=== PATIENT | male | born 1985 | race Asian ===

== ENCOUNTER 2017-03-16 22:34 | Emergency (ER) | payer OTHER ==
[~2017-03-16] VITALS: Ht 165.1 cm; Wt 88.6 kg
[2017-03-16 22:38] VITALS: Ht 165.1 cm; Wt 88.6 kg
[2017-03-16] MEDS ORDERED: KETOROLAC 30 MG INJ IM STA (23:00)
[2017-03-16] MEDS ORDERED: SOD CHLORIDE 0.9% 1,000 ML IV ONE (23:00)
[2017-03-16] MEDS ORDERED: ONDANSETRON (ODT) 4 MG TAB ODT STA (23:00)
--- NOTE | 2017-03-16 23:50 | RADRPT ---
PROCEDURE: CHEST - 1 VIEW CLINICAL INDICATION: 31 year-old male with cough. TECHNIQUE: AP erect view of the chest was performed on a single radiograph. The images were revi ewed on a PACS workstation. COMPARISON: None. FINDINGS: There is a shallow inspiration accentuating the heart size. Accounting for this the cardiomediastina l silhouette is within normal limits. There is mild bibasilar subsegmental atelectasis. There are m ild increased central interstitial lung markings. There is no evidence for a focal infiltrate. Ther e is no evidence for a pneumothorax or pneumomediastinum. The osseous structures are intact. IMPRESSION: 1. Mild increased central interstitial lung markings without focal infiltrate. 2. Shallow inspiration with mild bibasilar subsegmental atelectasis. .Conrad Jansen MD, MD Date Time Electronically viewed and signed by .Conrad Jansen MD, on 03/16/2017 23:49 .M/
--- NOTE | 2017-03-16 23:51 | ERD ---
ER Documentation Chief Complaint Chief Complaint flu like symptoms x 2 months, on oral antibiotic x 2 days HPI Patient is a 31-year-old male who presents to the ED for concerns of a cough 2 months. Patient reports seeing his primary care physician 2 days ago and being started on a Z-Wale and promethazine cough syrup. Patient states his cough is productive with clear production. Patient does report occasional specks of blood. Patient denies any sore throat or rhinorrhea. Patient does admit to generalized body aches. Patient reports intermittent fevers however did not check temperature at home. Patient denies any nausea, vomiting or diarrhea. Patient denies any abdominal pain. Patient denies any black stools or rectal bleeding. Patient denies any recent travel. No sick contacts. ROS All systems reviewed and are negative except as per history of present illness. Medications Home Meds Active Scripts Acetaminophen* (Tylophen*) 500 Mg Capsule, 1 CAP PO Q6H Y for PAIN AND OR ELEVATED TEMP, #20 CAP Prov:JEREMIAH CHACON PA-C 03/17/17 Ferrous Sulfate* (Ferrous Sulfate*) 325 Mg Tabec, 325 MG PO BID, #60 TAB Prov:JEREMIAH CHACON PA-C 03/17/17 Allergies Allergies: Coded Allergies: No Known Allergy (Unverified , 03/16/17) PMhx/Soc Medical and Surgical Hx: pt denies Surgical Hx Hx Cardiac Disorders: Yes (HTN) Hx Alcohol Use: No Hx Substance Use: No Hx Tobacco Use: No Smoking Status: Never smoker Physical Exam Vitals Vital Signs Date Time Temp Pulse Resp B/P Pulse Ox O2 Delivery O2 Flow Rate FiO2 03/17/17 01:28 99.5 106 03/16/17 22:38 102.4 128 22 133/61 97 Physical Exam GENERAL: Well-developed, well-nourished male. HEAD: Normocephalic, atraumatic. No deformities or ecchymosis. EYE: Pupils equal, round, and reactive to light. EOMs intact. No conjunctival erythema. No eye discharge. ENT: External ear without any masses or tenderness. TM visualized bilaterally, non-erythematous, non-bulging. Nasal mucosa pink with no discharge. Oropharynx is pink without any tonsillar erythema or exudates. No uvula deviation. No kissing tonsils. Mucous membranes dry. NECK: Supple. No meningismus. Normal ROM of the neck. LUNGS: Clear to auscultation bilaterally. No rhonchi, wheezing, rales or coarse breath sounds. HEART: Regular rate and rhythm. No murmurs, rubs or gallops. EXTREMITIES: Equal pulses bilaterally. No peripheral clubbing, cyanosis or edema. No unilateral leg swelling. NEUROLOGIC: Alert and oriented to person, place and time. Moving all four extremities. 5/5 strength in all extremities. Normal speech. Steady gait. SKIN: Slightly pale in appearance. Warm and dry. No rashes or lesions. Result Diagram: 03/16/17 2344 03/16/17 2344 Results 24 hrs Laboratory Tests Test 03/16/17 23:44 White Blood Count 16.010^3/ul Red Blood Count 4.3610^6/ul Hemoglobin 9.3g/dl Hematocrit 29.9% Mean Corpuscular Volume 68.6fl Mean Corpuscular Hemoglobin 21.3pg Mean Corpuscular Hemoglobin Concent 31.1g/dl Red Cell Distribution Width 18.0% Platelet Count 23356^3/UL Mean Platelet Volume 9.7fl Neutrophils % 80.5% Lymphocytes % 14.2% Monocytes % 3.9% Eosinophils % 0.4% Basophils % 0.4% Nucleated Red Blood Cells % 0.0/100WBC Neutrophils # 12.910^3/ul Lymphocytes # 2.310^3/ul Monocytes # 0.610^3/ul Eosinophils # 0.110^3/ul Basophils # 0.110^3/ul Nucleated Red Blood Cells # 0.010^3/ul Sodium Level 132mmol/L Potassium Level 3.7mmol/L Chloride Level 101mmol/L Carbon Dioxide Level 21mmol/L Anion Gap 14 Blood Urea Nitrogen 14mg/dl Creatinine 0.80mg/dl Glucose Level 117mg/dl Calcium Level 8.2mg/dl Total Bilirubin 1.3mg/dl Direct Bilirubin 0.00mg/dl Indirect Bilirubin 1.3mg/dl Aspartate Amino Transf (AST/SGOT) 51IU/L Alanine Aminotransferase (ALT/SGPT) 55IU/L Alkaline Phosphatase 89IU/L Total Protein 7.4g/dl Albumin 3.1g/dl Globulin 4.30g/dl Albumin/Globulin Ratio 0.72 Current Medications Medications (Trade) Dose Ordered Sig/Rubén Route PRN Reason Start Time Stop Time Status Last Admin Dose Admin Ondansetron HCl 4 mg 4 mg ONCE STAT ODT 03/16/17 23:00 03/16/17 23:03 DC 03/16/17 23:25 Sodium Chloride (NS) 1,000 ml @ 1,000 mls/hr Q1H ONCE IV 03/16/17 23:00 03/16/17 23:59 DC 03/16/17 23:25 Ketorolac Tromethamine (Toradol) 30 mg ONCE STAT IM 03/16/17 23:00 03/16/17 23:03 DC 03/16/17 23:24 Procedures/MDM ED COURSE: The patient was stable throughout ED course. I kept the patient and/or family informed of laboratory and diagnostic imaging results throughout the ED course. DIAGNOSTIC IMAGING: Read by radiologist. Patient: TANA KHOURY : 1985 Age: 31 Sex: M MR #: [id number] DOS: 03/16/17 2300 Ordering MD: JEREMIAH CHACON PA-C Location: [facility] Room/Bed: PROCEDURE: CHEST - 1 VIEW CLINICAL INDICATION: 31 year-old male with cough. TECHNIQUE: AP erect view of the chest was performed on a single radiograph. The images were reviewed on a PACS workstation. COMPARISON: None. FINDINGS: There is a shallow inspiration accentuating the heart size. Accounting for this the cardiomediastinal silhouette is within normal limits. There is mild bibasilar subsegmental atelectasis. There are mild increased central interstitial lung markings. There is no evidence for a focal infiltrate. There is no evidence for a pneumothorax or pneumomediastinum. The osseous structures are intact. IMPRESSION: 1. Mild increased central interstitial lung markings without focal infiltrate. 2. Shallow inspiration with mild bibasilar subsegmental atelectasis. .Conrad Jansen MD, Date Time Electronically viewed and signed by .Conrad Jansen MD, on 03/16/2017 23:49 PROCEDURES: None. MEDICATIONS GIVEN: Toradol, IV fluids Patient tolerated medication well with no adverse reactions. MEDICAL DECISION MAKING: This is a 31-year-old male who presents to the ED for concerns cough 2 months, worse over the last 2 days. Patient was started on a Z-Wale and promethazine cough syrup 2 days ago after seeing his primary care physician. Vital signs were reviewed. He was febrile initial presentation with a temperature of 102.4 Fahrenheit. He was given Toradol which did down trend his temperature.. Patient was not hypoxic. ENT exam was normal. TMs normal. Chest x-ray was obtained and showed mild increased central interstitial lung markings without focal infiltrate. Shallow inspiration with mild bibasilar subsegmental atelectasis noted. CBC showed patient had a white count of 16 and a hemoglobin of 9.3, hematocrit of 29.9. Patient MCV was noted to be 68, suggestive of a microcytic anemia. Patient denied any hematochezia, melena or tarry dark stools. Patient does not require emergent blood transfusion at this time. It was advised that he should follow-up with his primary care physician for his low hemoglobin level and discuss obtaining a possible endoscopy versus colonoscopy. Patient's CMP showed a sodium of 132, calcium of 8.2, indirect bilirubin of 1.3 and AST of 57. Flu swab was negative. Given these findings, the patient's presentation is most consistent with viral URI anemia.. Low suspicion for pneumonia, meningitis, sinusitis, otitis externa, acute otitis media, strep pharyngitis, epiglottitis or peritonsillar abscess. Low suspicion for sepsis at this time. Patient's pulse and temperature were noted to downtrending prior to discharge. Patient was given IV fluids and Toradol which should improve his overall symptoms. Patient stated that he had a follow-up appointment tomorrow morning with his primary care physician. Patient was given a copy of all blood work and imaging studies obtained today. Patient was advised to discuss all blood work and imaging studies with his primary care physician. PRESCRIPTIONS: Tylenol, iron sulfate supplements Patient advised to continue Z-Wale and promethazine cough syrup. DISCHARGE: At this time, patient is stable for discharge and outpatient management. Discussed patient's blood work and imaging study with my supervising physician Dr. Garcia who agrees with plan. Supportive therapies such as OTC throat lozenges, salt water gurgles, popsicles and jello discussed. I have instructed the patient to follow-up with his/her primary care physician in 1-2 days. I have instructed the patient to promptly return to the ER for any new or worsening symptoms including increased pain, swelling, fever, nausea, vomiting, weakness or difficulty breathing. The patient and/or family expressed understanding of and agreement with this plan. All questions were answered. Home care instructions were provided. Disclaimer: Inadvertent spelling and grammatical errors are likely due to EHR/ dictation software use and do not reflect on the overall quality of patient care. Also, please note that the electronic time recorded on this note does not necessarily reflect the actual time of the patient encounter. Departure Diagnosis: Primary Impression: Upper respiratory infection URI type: unspecified URI Qualified Code: J06.9 - Upper respiratory tract infection, unspecified type Additional Impression: Anemia Anemia type: unspecified type Qualified Code: D64.9 - Anemia, unspecified type Condition: Stable Patient Instructions: Anemia, Iron Deficiency (Adult), Preventing Common Respiratory Infections Referrals: [facility] Additional Instructions: Continue Z wale. Follow-up with her doctor as scheduled tomorrow morning. Discuss your anemia with your doctor tomorrow. You may need a endoscopy versus colonoscopy to rule out any GI bleeding. Call your primary care doctor TOMORROW for an appointment during the next 1-2 days.See the doctor sooner or return here if your condition worsens before your appointment time. JEREMIAH CHACON PA-C Mar 16, 2017 23:51
[2017-03-17 00:22] LABS: BASOPHIL # 0.1 10^3/ul (0.0-0.1); BASOPHILS % 0.4 % (0.0-2.0); EOSINOPHILS # 0.1 10^3/ul (0.0-0.5); EOSINOPHILS % 0.4 % (0.0-7.0); HEMATOCRIT 29.9 % (42.0-52.0); HEMOGLOBIN 9.3 g/dl (14.0-18.0); LYMPHOCYTES # 2.3 10^3/ul (0.8-2.9); LYMPHOCYTES % 14.2 % (15.0-51.0); MEAN CORPUSCULAR HEMOGLOBIN 21.3 pg (29.0-33.0); MEAN CORPUSCULAR HGB CONC 31.1 g/dl (32.0-37.0); MEAN CORPUSCULAR VOLUME 68.6 fl (82.0-101.0); MEAN PLATELET VOLUME 9.7 fl (7.4-10.4); MONOCYTE # 0.6 10^3/ul (0.3-0.9); MONOCYTES % 3.9 % (0.0-11.0); NEUTROPHIL # 12.9 10^3/ul (1.6-7.5); NEUTROPHILS % 80.5 % (39.0-77.0); PLATELET COUNT 290 10^3/UL (140-415); RED BLOOD COUNT 4.36 10^6/ul (4.70-6.10)
[2017-03-17 00:42] LABS: ALBUMIN 3.1 g/dl (3.3-4.9); ALBUMIN/GLOBULIN RATIO 0.72; BILIRUBIN,INDIRECT 1.3 mg/dl (0-1.1); BILIRUBIN,TOTAL 1.3 mg/dl (0.2-1.3); CALCIUM 8.2 mg/dl (8.4-10.2); CREATININE 0.8 mg/dl (0.61-1.24); POTASSIUM 3.7 mmol/L (3.5-5.1); TOTAL PROTEIN 7.4 g/dl (6.1-8.1)
[2017-03-17] MEDS ORDERED: FER325 PO (01:26)
[2017-03-17 01:28] VITALS: PULSE 106; TEMP 99.5
[2017-03-17] MEDS ORDERED: ACET500C5 PO (01:32)
== END 2017-03-17 01:55 | disposition home or self-care (01) ==
LOC: FTE 22:34
DX: J06.9 Acute upper respiratory infection, unspecified (principal); D64.9 Anemia, unspecified; I10 Essential (primary) hypertension
CPT/HCPCS: 36415; 71010; 80053; 85025; 87400; 96372; J1885; J7030; Z7502; Z7610

== ENCOUNTER 2017-03-18 04:29 | Day surgery (SDC) | payer OTHER ==
[~2017-03-18] VITALS: Ht 165.1 cm; Wt 92.8 kg
[~2017-03-18 04:29] MED LIST: ACET500C5 PO; FER325 PO
[2017-03-18 04:33] VITALS: Ht 165.1 cm; Wt 92.8 kg
[2017-03-18] MEDS ORDERED: SODIUM CHLORIDE 0.9% 1L BAG IV* STA (04:45)
[2017-03-18] MEDS ORDERED: CEFEPIME 2GM/50 ML (PMX) 50 ML IVPB STA (04:45)
[2017-03-18] MEDS ORDERED: ONDANSETRON 4 MG INJ IV STA (05:08)
[2017-03-18] MEDS ORDERED: IOHEXOL 100 ML ONE (05:36)
[2017-03-18] MEDS ORDERED: SOD CHLORIDE 0.9% 100 ML ONE (05:36)
[2017-03-18 05:42] LABS: ABNORMAL IP MESSAGE 1; HEMATOCRIT 32.2 % (42.0-52.0); HEMOGLOBIN 9.9 g/dl (14.0-18.0); MEAN CORPUSCULAR HEMOGLOBIN 22.4 pg (29.0-33.0); MEAN CORPUSCULAR HGB CONC 30.7 g/dl (32.0-37.0); MEAN PLATELET VOLUME 10.6 fl (7.4-10.4); NUCLEATED RED BLOOD CELLS% 1.1 /100WBC (0.0-0.0); PLATELET COUNT 162 10^3/UL (140-415); POSITIVE DIFF @See below; RED BLOOD COUNT 4.41 10^6/ul (4.70-6.10); RED CELL DISTRIBUTION WIDTH 18.1 % (11.5-14.5); WHITE BLOOD COUNT 33.2 10^3/ul (4.8-10.8)
[2017-03-18] MEDS ORDERED: NORepinephrine 8MG/250 ML (PMX 250 ML ONE ×2 (05:53→12:38)
[2017-03-18 05:58] LABS: INR 3.21; PROTIME 33.3 Sec (12.2-14.2); PT RATIO 2.6
[2017-03-18 05:59] LABS: PARTIAL THROMBOPLASTIN TIME 33.3 Sec (25.0-35.0)
[2017-03-18 06:08] LABS: ALBUMIN 2.9 g/dl (3.3-4.9); ALBUMIN/GLOBULIN RATIO 0.74; BILIRUBIN,DIRECT 0.4 mg/dl (0.00-0.20); BILIRUBIN,INDIRECT 2.7 mg/dl (0-1.1); BILIRUBIN,TOTAL 3.1 mg/dl (0.2-1.3); CALCIUM 8.2 mg/dl (8.4-10.2); CREATININE 1.68 mg/dl (0.61-1.24); POTASSIUM 5.4 mmol/L (3.5-5.1); TOTAL PROTEIN 6.8 g/dl (6.1-8.1)
[2017-03-18] MEDS ORDERED: SOD CHLORIDE 0.9% 1,000 ML IV ONE (06:30)
[2017-03-18] MEDS ORDERED: DEXTROSE 50% 50 ML SYRINGE IV ONE (06:30)
[2017-03-18] MEDS ORDERED: DEXTROSE 10% 1,000 ML IV STA (06:31)
--- NOTE | 2017-03-18 06:47 | RADRPT ---
PROCEDURE: CTA Chest, abdomen, and pelvis with contrast. CLINICAL INDICATION: Severe shortness of breath and tachycardia TECHNIQUE: Thin section spiral CT images were obtained through the vasculature of the chest, abdom en, and pelvis during administration of 100 ccs of Omnipaque 350 contrast material. Coronal and sag ittal reformatted images were obtained from the axial source images. 3D maximum intensity reconstruc yumiko were performed. Images were reviewed on a high-resolution PACS workstation. The total exam CTDI was 19.34 mGy and the total exam DLP was 1512.09 mGy-cm. One or more of the following dose reductio n techniques were used: automated exposure control, adjustment of the mA and/or kV according to tequila ent size, or use of iterative reconstruction technique. DICOM images are available. COMPARISON: Chest x-ray from the same day FINDINGS: Chest: Significant volume loss of the lungs is seen with compressive atelectasis. Dependent infectio us infiltrates cannot be excluded.. Endotracheal tube appears in good position.. There are large bi lateral pleural effusions, right greater than left.. Cardiomegaly is seen. Right heart enlargement i s seen suggesting fluid overload or decreased right heart function. There is no evidence for pulmona ry embolus or aortic dissection. No aortic aneurysm is seen. No bony abnormality is seen. Abdomen and pelvis: . The study was obtained in the arterial phase of enhancement which limits evalu ation of the solid organs. The liver appears slightly low in attenuation which may be due to hepatic steatosis. There is fat stranding in the region of the gee hepatis and adjacent to the gallbladde r with stranding and fluid adjacent to the inferior aspect of the liver and extending along the righ t paracolic gutter into the pelvis. Moderate pelvic free fluid is seen. Fat stranding extends along the distal stomach and duodenum with fat stranding also seen at the adjacent to the head, neck, and body of the pancreas. Acute pancreatitis is possible. No gross abnormality of the spleen, adrenals, or kidneys. There may be mild gallbladder wall thickening. Right femoral line is in place. The bladd er and prostate are unremarkable in appearance. The right upper quadrant inflammatory process is adj acent to the hepatic flexure but this does not appear to be the epicenter of the inflammatory process. Probable normal appendix. No evidence for small bowel obstruction, free air, or focal absce ss. No adenopathy is seen. There is mild degenerative change of the spine. IMPRESSION: No definite evidence for pulmonary embolus. Cardiomegaly and bilateral pleural effusions with compre ssive atelectasis of the lungs versus infectious infiltrates. Right heart enlargement suggests fluid overload or possibly a degree of heart failure. Inflammatory process of the right upper quadrant with inflammatory change about the gallbladder, moreno creas, distal stomach and duodenum, and gee hepatis. This could all be due to pancreatitis and / o r cholecystitis. No definite free air, bowel obstruction, or abscess. Moderate free fluid in the rig ht upper quadrant and extending in the pelvis. Probable hepatic steatosis. RPTAT: [facility] Physician Shannon Date Time Electronically viewed and signed by Lashonda Mitchell Physician on 03/18/2017 06:46 LE/
[2017-03-18 06:48] LABS: ANISOCYTOSIS 1+ (0-0); ERYTHROBLAST% (NRBC) (M) 3 % (0-0); GIANT THROMBO% (M) 3 % (0-0); MICROCYTOSIS 1+ (0-0); MONOCYTES % (M) 4 % (0-11); PLATELET ESTIMATE NORMAL
--- NOTE | 2017-03-18 06:48 | RADRPT ---
PROCEDURE: CHEST - 1 VIEW CLINICAL INDICATION: 31-year-old male with shortness of breath and sepsis. TECHNIQUE: AP semi-erect portable view of the chest was performed on a single radiograph. The im ages were reviewed on a PACS workstation. COMPARISON: None. FINDINGS: The cardiomediastinal silhouette is enlarged. There are mild pulmonary vascular congestion. There is no evidence for a focal infiltrate. There is no evidence for a pneumothorax or pneumomediastinum. The osseous structures are intact. IMPRESSION: 1. Cardiomegaly. 2. Mild pulmonary vascular congestion/volume overload. .Conrad Jansen MD, MD Date Time Electronically viewed and signed by .Conrad Jansen MD, MD on 03/18/2017 06:48 .M/
[2017-03-18] MEDS ORDERED: ROCURONIUM 50 MG INJ ONE (07:00)
[2017-03-18] MEDS ORDERED: EPINEPHrine 0.1 MG/ML SYG ONE ×2 (07:00→12:32)
[2017-03-18] MEDS ORDERED: DEXTROSE 50% 50 ML SYRINGE ONE (07:00)
[2017-03-18] MEDS ORDERED: ATROPINE 1 MG/10 ML SYRINGE ONE (07:00)
[2017-03-18] MEDS ORDERED: NA BICARBONATE 8.4% 50 ML SYG ONE ×2 (07:00→11:50)
[2017-03-18] MEDS ORDERED: ETOMIDATE 20 MG INJ ONE (07:00)
[2017-03-18 07:12] LABS: ADD UMIC YES; UR AMORPHOUS CRYSTAL FEW /HPF (NONE SEEN); UR ASCORBIC ACID 40 mg/dL (NEGATIVE); UR BACTERIA FEW /HPF (NONE SEEN); UR BILIRUBIN (Dip) NEGATIVE (NEGATIVE); UR BLOOD (Dip) 2+ mg/dL (NEGATIVE); UR CLARITY CLOUDY (CLEAR); UR COLOR AMBER (YELLOW); UR GLUCOSE (Dip) NEGATIVE (NEGATIVE); UR KETONES (Dip) TRACE mg/dL (NEGATIVE); UR LEUKOCYTE ESTERASE (Dip) NEGATIVE Leu/ul (NEGATIVE); UR MUCUS FEW /HPF (NONE SEEN); UR NITRITE (Dip) NEGATIVE (NEGATIVE); UR RBC 8 /HPF (0-5); UR SPECIFIC GRAVITY (Dip) 1.019 (1.003-1.030); UR TOTAL PROTEIN (Dip) 2+ mg/dl (NEGATIVE); UR UROBILINOGEN (Dip) 2+ mg/dL (NEGATIVE)
[2017-03-18 07:20] LABS: AADO2 Arterial 219.4 mmHg (7.0-24.0); Arterial Base Excess -22.9 mmol/L (-3.0-3); Arterial COHb 0.3 % (0.0-3.0); Arterial Fraction of Oxyhgb 98.6 % (93.0-99.0); Arterial HCO3 5.8 mmol/L (22.0-26.0); Arterial MetHb 0.4 % (0.0-1.5); Arterial Total Hemglobin 10.6 g/dl (12.0-18.0); MODE MASK - BIPAP
[2017-03-18 07:23] LABS: AADO2 Arterial 573.7 mmHg (7.0-24.0); Arterial Base Excess -24.7 mmol/L (-3.0-3); Arterial COHb 0.3 % (0.0-3.0); Arterial Fraction of Oxyhgb 91.7 % (93.0-99.0); Arterial HCO3 6.4 mmol/L (22.0-26.0); Arterial MetHb 0.6 % (0.0-1.5); Arterial Total Hemglobin 8.6 g/dl (12.0-18.0); Blood Gas Mean Airway Pressure 12; MODE VENT - AC
--- NOTE | 2017-03-18 07:24 | ERD ---
ER Documentation Chief Complaint Chief Complaint PT IN C/O DIZZINESS, SOB, WITH RAPID BREATHING. SKIN PALE (ERIN GRIER DO) HPI This 31-year-old male brought in by parents for feeling extremely lightheaded and shortness of breath today. He states that for the last few weeks he has had a slight cough and has not been feeling as well. He came in yesterday for those symptoms and had a fever at the time of the fever was relieved in the emergency room the patient was feeling much better when he left. Today he quickly got much worse and started to say that he could not breathe. Patient denies chest pain. Said he had chills denies fevers. Denies nausea or vomiting. I was both involved in the care of this patient yesterday and reviewed his EMR. Discussed the case with the PA and had a low hemoglobin. He was feeling much better in the emergency room vital signs had stabilized and he felt comfortable going home. No infectious source was found at that time. He is to have acutely decompensated from yesterday. (ERIN GRIER DO) ROS All systems reviewed and are negative except as per history of present illness. (ERIN GRIER DO) Medications Home Meds Active Scripts Acetaminophen* (Tylophen*) 500 Mg Capsule, 1 CAP PO Q6H Y for PAIN AND OR ELEVATED TEMP, #20 CAP Prov:JEREMIAH CHACON PA-C 03/17/17 Ferrous Sulfate* (Ferrous Sulfate*) 325 Mg Tabec, 325 MG PO BID, #60 TAB Prov:JEREMIAH CHACON PA-C 03/17/17 Allergies Allergies: Coded Allergies: No Known Allergy (Unverified , 03/16/17) PMhx/Soc Medical and Surgical Hx: pt denies Surgical Hx History of Surgery: No Anesthesia Reaction: No Hx Neurological Disorder: No Hx Respiratory Disorders: No Hx Cardiac Disorders: Yes (HTN) Hx Psychiatric Problems: No Hx Miscellaneous Medical Probl: No Hx Alcohol Use: No Hx Substance Use: No Hx Tobacco Use: No Smoking Status: Never smoker (ERIN GRIER DO) Physical Exam Vitals Vital Signs Date Time Temp Pulse Resp B/P Pulse Ox O2 Delivery O2 Flow Rate FiO2 03/18/17 12:00 98.3 139 20 145/73 93 Mechanical Ventilator 10.0 03/18/17 11:00 98.3 59 20 146/96 100 Mechanical Ventilator 10.0 03/18/17 10:35 98.3 123 20 141/55 100 Mechanical Ventilator 10.0 03/18/17 10:25 98.3 139 20 151/71 100 Mechanical Ventilator 10.0 03/18/17 10:20 98.3 76 20 149/78 100 Mechanical Ventilator 10.0 03/18/17 10:15 98.0 27 20 93/28 100 Mechanical Ventilator 10.0 03/18/17 10:00 98.0 100 20 83/29 100 Mechanical Ventilator 10.0 03/18/17 09:30 98.0 99 20 99/44 98 Mechanical Ventilator 10.0 03/18/17 08:29 98.3 100 20 108/41 100 Mechanical Ventilator 10.0 03/18/17 07:30 98.0 103 20 108/38 100 Mechanical Ventilator 10.0 03/18/17 07:00 98 40 100 100 03/18/17 07:00 97.7 103 20 97/25 100 Mechanical Ventilator 10.0 03/18/17 06:30 97.7 97 20 85/46 78 Mechanical Ventilator 10.0 03/18/17 06:00 130 40 94 100 03/18/17 05:39 101.0 03/18/17 05:20 97.9 114 56 151/59 100 BIPAP 03/18/17 04:45 113 100 90 03/18/17 04:33 99.5 113 22 156/67 99 (RAFI WEINER DO) Physical Exam Const: [] Severe distress, tachypneic. Head: Atraumatic Eyes: Normal Conjunctiva, EOMI, PERRLA ENT: Normal External Ears, Nose and Mouth. Neck: Full range of motion..~ No meningismus. Resp: Clear to auscultation bilaterally, tachypnea with abdominal accessory muscle use. Cardio: Regular tachycardia no murmurs Abd: Soft, non tender, non distended. Normal bowel sounds Skin: No petechiae or rashes Ext: No cyanosis, or edema Neur: Awake and alert and oriented 3, no focal deficits (ERIN GRIER DO) Result Diagram: 03/18/17 0500 03/18/17 0500 Results 24 hrs Laboratory Tests Test 03/18/17 05:00 03/18/17 05:28 03/18/17 06:25 03/18/17 06:33 White Blood Count 33.210^3/ul Red Blood Count 4.4110^6/ul Hemoglobin 9.9g/dl Hematocrit 32.2% Mean Corpuscular Volume 73.0fl Mean Corpuscular Hemoglobin 22.4pg Mean Corpuscular Hemoglobin Concent 30.7g/dl Red Cell Distribution Width 18.1% Platelet Count 35424^3/UL Mean Platelet Volume 10.6fl Neutrophils % % Segmented Neutrophils % (Manual) 67% Band Neutrophils % (Manual) 12% Lymphocytes % % Lymphocytes % (Manual) 17% Monocytes % % Monocytes % (Manual) 4% Eosinophils % % Basophils % % Nucleated Red Blood Cells % 3% Neutrophils # 10^3/ul Neutrophils # (Manual) 23.510^3/ul Band Neutrophils # 3.910^3/ul Absolute Lymphocytes (Manual) 5.610^3/ul Lymphocytes # 10^3/ul Monocytes # 10^3/ul Absolute Monocytes (Manual) 1.310^3/ul Eosinophils # 10^3/ul Basophils # 10^3/ul Nucleated Red Blood Cells # 10^3/ul Platelet Estimate NORMAL Giant Platelets 3% Platelet Morphology Comment @See below Anisocytosis 1+ Microcytosis 1+ Prothrombin Time 33.3Sec Prothrombin Time Ratio 2.6 INR International Normalized Ratio 3.21 Activated Partial Thromboplast Time 33.3Sec Sodium Level 127mmol/L Potassium Level 5.4mmol/L Chloride Level 94mmol/L Carbon Dioxide Level 9mmol/L Anion Gap 29 Blood Urea Nitrogen 23mg/dl Creatinine 1.68mg/dl Glucose Level 44mg/dl Lactic Acid Level 16.5mmol/L Calcium Level 8.2mg/dl Total Bilirubin 3.1mg/dl Direct Bilirubin 0.40mg/dl Indirect Bilirubin 2.7mg/dl Aspartate Amino Transf (AST/SGOT) 5968IU/L Alanine Aminotransferase (ALT/SGPT) 3847IU/L Alkaline Phosphatase 173IU/L Troponin I 0.122ng/ml Total Protein 6.8g/dl Albumin 2.9g/dl Globulin 3.90g/dl Albumin/Globulin Ratio 0.74 Lipase 311U/L Thyroid Stimulating Hormone (TSH) 1.690MIU/L Blood Gas Specimen Source Blood arterial Blood arterial Arterial Blood Date Drawn 03/18/2017 5:25:34 AM 03/18/2017 6:40:01 AM Arterial Blood pH (Temp corrected) 7.055 6.920 Arterial Blood pCO2 (Temp correct) 21.3mmhg 31.7mmhg Arterial Blood pO2 (Temp corrected) 400.5mmHG 107.6mmHG Arterial Blood HCO3 5.8mmol/L 6.4mmol/L Arterial Blood Base Excess -22.9mmol/L -24.7mmol/L Arterial Blood Oxygen Saturation 99.3mmHG 92.5mmHG Germain Test N/A N/A Arterial Blood Gas Puncture Site Right Brachial Right Brachial Arterial Blood Carboxyhemoglobin 0.3% 0.3% Arterial Blood Methemoglobin 0.4% 0.6% Blood Gas A-a O2 Differential 219.4mmHg 573.7mmHg Oxyhemoglobin Percent 98.6% 91.7% Total Hemoglobin 10.6g/dl 8.6g/dl Blood Gas Temperature 37.0C 37.0C Blood Gas Respiration Rate 24.0 40.0 Blood Gas Actual Respiration Rate 58 40 Blood Gas Modality MASK - BIPAP VENT - AC FiO2 90.0% 100.0% Blood Gas IPAP/EPAP Ratio Blood Gas Critical Value Read Back ERIN SNOWDEN DR, Wilder Blood Gas Notified Whom BL BL Blood Gas Notified Time 03/18/2017 5:35:25 AM 03/18/2017 6:48:53 AM Bedside Glucose 39mg/dL Blood Gas Tidal Volume 400.0mL Blood Gas Mean Airway Pressure 12 Blood Gas Inspiratory Pressure 22.0 Test 03/18/17 06:35 03/18/17 06:40 03/18/17 06:50 03/18/17 07:29 Urine Color CHIKA Urine Clarity CLOUDY Urine pH 5.0 Urine Specific [place] 1.019 Urine Ketones TRACEmg/dL Urine Nitrite NEGATIVEmg/dL Urine Bilirubin NEGATIVEmg/dL Urine Urobilinogen 2+mg/dL Urine Leukocyte Esterase NEGATIVELeu/ul Urine Microscopic RBC 8/HPF Urine Microscopic WBC 6/HPF Urine Amorphous Crystals FEW/HPF Urine Bacteria FEW/HPF Urine Mucus FEW/HPF Urine Hemoglobin 2+mg/dL Urine Glucose NEGATIVEmg/dL Urine Total Protein 2+mg/dl Urine Opiates Screen Negative Urine Barbiturates Negative Urine Amphetamines Screen Negative Urine Benzodiazepines Screen Negative Urine Cocaine Screen Negative Urine Cannabinoids Negative Bedside Glucose 146mg/dL 153mg/dL Lactic Acid Level 16.1mmol/L Test 03/18/17 08:17 03/18/17 08:20 03/18/17 08:27 03/18/17 09:29 Lactic Acid Level 15.6mmol/L Phosphorus Level 9.6mg/dl Free Thyroxine 2.11ng/dl Acetaminophen Level < 10.0ug/ml Hepatitis B Surface Antigen NEGATIVE Hepatitis B Core Total Antibody NEGATIVE Hepatitis C Antibody NEGATIVE HIV (1&2) Antibody NEGATIVE Bedside Glucose 149mg/dL 187mg/dL Test 03/18/17 10:50 03/18/17 12:00 03/18/17 13:26 Lactic Acid Level 16.2mmol/L Salicylates Level < 1.0mg/dl Ethyl Alcohol Level 10.0mg/dl Creatine Kinase 152IU/L Creatine Kinase Index 2.2 Creatinine Kinase MB (Mass) 3.32ng/ml Troponin I 0.159ng/ml Blood Gas Specimen Source Blood arterial Arterial Blood Date Drawn 03/18/2017 1:29:43 PM Arterial Blood pH (Temp corrected) 6.914 Arterial Blood pCO2 (Temp correct) 70.3mmhg Arterial Blood pO2 (Temp corrected) 24.4mmHG Arterial Blood HCO3 13.9mmol/L Arterial Blood Base Excess -18.1mmol/L Arterial Blood Oxygen Saturation 20.0mmHG Germain Test N/A Arterial Blood Gas Puncture Site Femoral Arterial Blood Carboxyhemoglobin 0.3% Arterial Blood Methemoglobin 2.3% Blood Gas A-a O2 Differential 618.3mmHg Oxyhemoglobin Percent 19.5% Total Hemoglobin 8.4g/dl Blood Gas Temperature 37.0C Blood Gas Respiration Rate 40.0 Blood Gas Actual Respiration Rate 40 Blood Gas Modality VENT - AC FiO2 100.0% Blood Gas Tidal Volume 400.0mL Blood Gas Critical Value Read Back Dr Weiner Blood Gas Notified Whom ab Blood Gas Notified Time 03/18/2017 1:44:35 PM Current Medications Medications (Trade) Dose Ordered Sig/Rubén Route PRN Reason Start Time Stop Time Status Last Admin Dose Admin Sodium Chloride 2880 ml 2,880 ml BOLUS OVER 2 HOURS STAT IV* 03/18/17 04:45 03/18/17 04:46 DC 03/18/17 05:12 Cefepime HCl (Maxipime 2gm/50 ml (Pmx)) 50 ml @ 100 mls/hr ONCE STAT IVPB 03/18/17 04:45 03/18/17 05:14 DC 03/18/17 06:45 Ondansetron HCl (Zofran Inj) 4 mg ONCE STAT IV 03/18/17 05:08 03/18/17 05:09 DC 03/18/17 05:11 IV Flush 10 ml 10 ml STK-MED ONCE .ROUTE 03/18/17 05:36 03/18/17 05:37 DC 03/18/17 06:32 Sodium Chloride 100 ml @ ud STK-MED ONCE .ROUTE 03/18/17 05:36 03/18/17 05:37 DC 03/18/17 06:32 Iohexol 100 ml @ ud STK-MED ONCE .ROUTE 03/18/17 05:36 03/18/17 05:37 DC 03/18/17 06:32 Norepinephrine 250 ml @ ud STK-MED ONCE .ROUTE 03/18/17 05:53 03/18/17 05:54 DC Sodium Chloride (NS) 1,000 ml @ 1,000 mls/hr Q1H ONCE IV 03/18/17 06:30 03/18/17 07:29 DC 03/18/17 06:32 Dextrose 50 ml 50 ml ONCE ONCE IV 03/18/17 06:30 03/18/17 06:31 DC 03/18/17 06:32 Dextrose 1,000 ml @ 200 mls/hr Q5H STAT IV 03/18/17 06:31 03/18/17 11:30 DC 03/18/17 06:43 Vancomycin HCl 250 ml @ 125 mls/hr ONCE IVPB 03/18/17 07:30 03/18/17 09:29 DC 03/18/17 07:25 Piperacillin Sod/ Tazobactam Sod 50 ml @ 100 mls/hr ONCE ONCE IV 03/18/17 07:30 03/18/17 07:59 DC 03/18/17 07:55 Acetylcysteine 41686 mg/Dextrose 270 ml @ 200 mls/hr ONCE STAT IV 03/18/17 08:28 03/18/17 09:48 DC 03/18/17 09:25 Propofol 100 ml @ 2.784 mls/ hr ONCE STAT IV 03/18/17 08:35 03/19/17 20:30 03/18/17 08:46 Phenylephrine HCl (Chevy-Syneph) 250 ml @ 0 mls/hr TITRATE IV 03/18/17 12:00 03/18/17 12:00 DC IV Flush (NS 3 ml) 3 ml PER PROTOCOL IV 03/18/17 11:30 Ondansetron HCl (Zofran Inj) 4 mg Q6H PRN IV NAUSEA AND/OR VOMITING 03/18/17 11:30 Acetaminophen (Tylenol Tab) 650 mg Q6H PRN PO PAIN LEVEL 1-3 OR FEVER 03/18/17 11:30 Acetaminophen/ Hydrocodone Bitart ([place] (5/325)) 1 tab Q6H PRN PO MODERATE PAIN LEVEL 4-6 03/18/17 11:30 Morphine Sulfate (morphine) 2 mg Q4H PRN IV SEVERE PAIN LEVEL 7-10 03/18/17 11:30 Docusate Sodium (Colace) 100 mg Q12H PRN PO CONSTIPATION 03/18/17 11:30 Magnesium Hydroxide (Milk Of Mag) 30 ml DAILY PRN PO CONSTIPATION 03/18/17 11:30 Sodium Biphosphate/ Sodium Phosphate (Fleet Enema) 133 ml DAILY PRN MS CONSTIPATION 03/18/17 11:30 Famotidine (Pepcid Iv) 20 mg Q12 IV 03/18/17 21:00 Heparin Sodium (Porcine) (Heparin (5000 Units/0.5 ml)) 5,000 unit Q8 SC 03/18/17 14:00 Lorazepam 0.5 mg 0.5 mg Q6H PRN PO ANXIETY 03/18/17 11:30 Sodium Bicarbonate/ Dextrose (Na Bicarb/D5W) 1,150 ml @ 150 mls/hr Q7H40M IV 03/18/17 12:00 Albuterol/ Ipratropium (Duoneb) 3 ml Q4H RESP THERAPY PRN HHN SHORTNESS OF BREATH 03/18/17 11:30 Nitroglycerin 1 tab 1 tab Q5M PRN SL ANGINA 03/18/17 11:30 Cefepime HCl 50 ml @ 100 mls/hr Q8 IVPB 03/18/17 14:00 Daptomycin 1000 mg/Sodium Chloride 100 ml @ 200 mls/hr Q24H IVPB 03/18/17 12:30 Norepinephrine 32 mg/Dextrose 250 ml @ 0.46 mls/hr TITRATE IV 03/18/17 11:30 Phenylephrine HCl 160 mg/Dextrose 500 ml @ 18.75 mls/ hr TITRATE IV 03/18/17 11:30 03/18/17 12:02 Phenylephrine HCl (Chevy-Syneph) 250 ml @ 0 mls/hr TITRATE IV 03/18/17 12:00 03/18/17 16:00 Sodium Bicarbonate (Na Bicarb 8.4% Syg) 50 ml STK-MED ONCE .ROUTE 03/18/17 11:50 03/18/17 11:51 DC Epinephrine 1 mg 1 mg STK-MED ONCE .ROUTE 03/18/17 12:32 03/18/17 12:33 DC Epinephrine 4 mg/ Dextrose 250 ml @ 0 mls/hr TITRATE IV 03/18/17 13:00 03/18/17 13:01 DC 03/18/17 12:48 Norepinephrine (Levophed) 250 ml @ ud STK-MED ONCE .ROUTE 03/18/17 12:38 03/18/17 12:39 DC (RAFI WEINER DO) Procedures/MDM This is criteria with acute inflammatory process of the upper abdomen. Patient with significant decompensation while in the emergency room. Initially BiPAP was tried because of increased work of breathing or patient became more tachypneic on BiPAP and his mental status deteriorated. Then intubated and hyperventilated at a rate of 40 attempt to match his previous rate is he would already had a blood gas that showed severe metabolic acidosis with respiratory compensation. Been given cefepime empirically. Subsequently heart rate began to steadily decrease as well as blood pressure and patient lost pulses while I was feeling the pulses. CPR was started was given 1 mg of epi as well as to amps of bicarb. 2 rounds of CPR performed patient had retained spontaneous circulation. Central line was placed during CPR and was started on levo fed. Patient was then taken to CAT scan to rule out pulmonary embolism and abdomen was done as well to look for any cause of the patient's severe condition. This found the patient had compatible compressive atelectasis of both lungs possible infiltrates as well as severe inflammation of the entire upper abdomen. Also had critically low glucose and was given 2 A of dextrose after the first appendectomy still had very low sugar. Antibiotics were to vancomycin and Zosyn. He was started on the liter of D10 at 200/h. LFT's are still pending as is troponin and echocardiogram. Spoke with Dr. Leiva who recommends NAC if LFT's are elevated and TX to a transplant center if hepatic disfunction. Oncoming physican notified and Dr. Hall was paged. EKG interpretation: Sinus tachycardia rate of 115, right axis deviation, inverted T waves in the lateral leads suspicious for ischemia, no ST elevations or depressions. tip cementer interpretation: Sinus tachycardia may quickly became bradycardia followed by sinus tachycardia after return of spontaneous circulation. No other arrhythmias Chest x-ray interpretation: Large amount of pulmonary vasculature, no obvious infiltrate, no pneumothorax, no widened mediastinum, no fractures. CT angios chest and abdomen: No PE. Cardiomegaly and atelectasis versus infiltrate of lungs. Right heart enlargement, abdomen with inflammation of entire upper abdomen including gallbladder, pancreas, stomach, duodenum and gee hepatis. No evidence of perforation or abscess. No fractures ET intubation note: Preoxygenated with bag mask ventilation, RSI used with 20 mg of etomidate 100 mg of rocuronium. Easily intubated using MAC 4 blade introducing size 8 ET tube through easily visualized cords. One attempt was made. Patient taught the procedure with no complications. Oxygen saturation is 100% after the procedure. Central line note, right femoral vein: Sterile technique. Ultrasound guidance was used to easily introduce a 7 [place] triple-lumen Angiocath into the right femoral vein using Seldinger technique. Ports flushed well there is good blood return. Tolerated well with no complications. Critical care time greater than 35 minutes: This includes treatment of unstable vital signs, ventilator management, careful fluid administration and sepsis, treatment of severe hypoglycemia, treatment of severe metabolic acidosis, postresuscitation treatment, at least 30 minutes spent at the patient's bedside not including billable procedures, question with parents and admitting doctor, review of chart. This does not include any billable procedures. (ERIN GRIER DO) Dr. leiva called and said the patient will be transferred to [facility] transplant [facility]. He was able to call around and arrange this for us Advised me to start N-acetylcysteine IV load Our laboratory secretary called [facility] to arrange transfer. Nurses asking me for propofol drip which I will start now Cardiopulmonary Resuscitation by me: See code documentation for specific details. ACLS and BLS were performed with high quality chest compressions and minimal interruptions. Reversible causes were assessed and treated. The patient slowly became more bradycardic and lost his pulse. CPR was initiated he was given epinephrine 1 mg 2 with bicarb. 1 amp IV The patient's Levophed was increased. The patient did return of spontaneous circulation after a few minutes of CPR. Still attempting to get his echocardiogram read by cardiology. Cardiopulmonary Resuscitation by me: See code documentation for specific details. ACLS and BLS were performed with high quality chest compressions and minimal interruptions. Reversible causes were assessed and treated. Patient's blood pressure and heart rate declined he lost his pulse again he responded epinephrine and bicarbonate pulses returned Spoke with Dr. Mitesh Harrison the patient has endocarditis on echocardiogram. Dr. Michael adorno a vascular surgery cannot take the patient to the OR at this time due to the instability with repeated coading The patient needs to be more cardiovascularly stable before can go to the OR. We have added Chevy-Synephrine intravenous drip if this does not work we will switch to epinephrine drip. Getting new ABG now. Dr. Mitesh Harrison will see the patient in consultation. Cannot tolerate balloon pump due to severe aortic insufficiency . Cardiopulmonary Resuscitation by me: See code documentation for specific details. ACLS and BLS were performed with high quality chest compressions and minimal interruptions. Reversible causes were assessed and treated. Blood pressure and heart rate once again dropped. Responded to epinephrine and bicarbonate Critical Care Time: 70 minutes Treatments/Evaluations: Close monitoring and treatment of unstable vital signs, cardiorespiratory, and neurologic status, while maintaining tight balance of fluid, respiratory, and cardiac interventions. This time includes discussing the case with the patient and the patient's family. This time does not include all procedures stated elsewhere in this record. This time also includes reviewing old records, labs and radiological studies. This time includes examining and re-examining the patient. Additionally, this time also includes arranging care with admitting and consulting physicians. Cardiopulmonary Resuscitation by me: See code documentation for specific details. ACLS and BLS were performed with high quality chest compressions and minimal interruptions. Reversible causes were assessed and treated. Patient was again responded to epi and bicarb. Epinephrine drip was started and blood pressure is now much more stable with 120s-130s systolic heart rate 126. Dr. Sagastume is at bedside. We discussed and I will place another central line as he will take the patient to the [facility] to get temporary pacemaker placed. Central Line Placement by me: Patient consented, sterilely draped, full prep, gown, glove, mask, time out performed. Anesthesia: 1% lidocaine locally Location: Left femoral Device: Multiple lumen Technique: Seldinger technique. Secured with suture. Results: Venous return from all ports with easy saline flush. No complications. XOXOXO Guide wire retrieved and disposed of. Patient was given 4 A of sodium bicarbonate IV Cardiopulmonary Resuscitation by me: See code documentation for specific details. ACLS and BLS were performed with high quality chest compressions and minimal interruptions. Reversible causes were assessed and treated. Patient bradycardia down again and was given more sodium bicarbonate and epinephrine and atropine. Patient's pulse and return. The patient was then taken to the [facility] with Dr. Mitesh Harrison to have a pacemaker placed ABG demonstrates a pH of 6.9. I have ordered a sodium bicarbonate drip Patient went to the [facility] and pacemaker placed however patient's heart did not respond. Patient was in CPR for over 35 minutes. The code was called by Dr. Mitesh Harrison at 1411 Family notified at bedside (RAFI WEINER DO) Departure Diagnosis: Primary Impression: Endocarditis Endocarditis type: infective Infective endocarditis organism: unspecified organism Chronicity: acute Qualified Code: I33.0 - Acute infective endocarditis, due to unspecified organism Additional Impressions: Respiratory failure Chronicity: acute Respiratory failure complication: unspecified whether with hypoxia or hypercapnia Qualified Code: J96.00 - Acute respiratory failure , unspecified whether with hypoxia or hypercapnia Cardiac arrest Acute kidney injury Hyperkalemia Anemia Anemia type: unspecified type Qualified Code: D64.9 - Anemia, unspecified type Severe sepsis Hypoglycemia Acidosis, metabolic Condition: Critical ERIN GRIER DO Mar 18, 2017 07:11 RAFI WEINER DO Mar 18, 2017 08:34
[2017-03-18] MEDS ORDERED: PIPER-TAZO 3.375 GM IV (PMX) 50 ML IV ONE (07:30)
[2017-03-18] MEDS ORDERED: VANCOMYCIN 1 GM (PMX) 250 ML IVPB SCH (07:30)
[2017-03-18 07:52] LABS: THYROID STIMULATING HORMONE 1.69 MIU/L (0.465-4.680)
[2017-03-18 08:17] LABS: TROPONIN-I 0.122 ng/ml (0.00-0.12)
--- NOTE | 2017-03-18 08:22 | RADRPT ---
PROCEDURE: US Abdomen. CLINICAL INDICATION: abdominal pain TECHNIQUE: Multiple real-time images were acquired of the patient's abdomen utilizing a high resol ution transducer. COMPARISON: CT angiogram 03/18/2017 FINDINGS: The liver demonstrates increased echogenicity. The liver is enlarged in size. The liver measures 19. 1 cm in length. There are no focal solid lesions seen. There is no intrahepatic biliary duct dilatat ion. The portal vein is patent with normal direction of flow. 6 mm gallstone at the gallbladder neck. Gallbladder wall thickening up to 9 mm. The common bile duct measures 4 mm in maximal dimension. Right kidney measures 12.2 cm. No hydronephrosis or nephrolithiasis. The visualized portions of the pancreas are unremarkable. Large right pleural effusion incidentally noted. Small perihepatic and pelvic ascites. RPTAT: AA IMPRESSION: Cholelithiasis with gallbladder wall thickening. No common bile duct distension. Findings may reflec t cholecystitis, further evaluation with HIDA recommended. Large right pleural effusion. Small perihepatic and pelvic ascites. Hepatomegaly with steatosis. Physician Ed Date Time Electronically viewed and signed by Physician Ed on 03/18/2017 08:21 NH/
[2017-03-18 08:27] LABS: HAAIG REFLEX REFLEX FILED
[2017-03-18] MEDS ORDERED: ACETYLCYSTEINE IV STA (08:28)
[2017-03-18] MEDS ORDERED: DEXTROSE 5% IV STA (08:28)
[2017-03-18] MEDS ORDERED: PROPOFOL 100 ML IV STA (08:35)
[2017-03-18 09:42] LABS: HEPATITIS B CORE ANTIBODY NEGATIVE (NEGATIVE)
--- NOTE | 2017-03-18 11:06 | RADRPT ---
Echocardiogram Report Patient Name: TANA KHOURY Gender: Male Date: 1985 Study Date: 18-Mar-2017 Employee Benefits Manager: DANNI Location: E Ref. Physician: ERIN GRIER Quality: Adequate Procedures: Transthoracic echocardiogram with complete 2D, M-Mode, and Doppler examination. Indications: Sepsis, S/P cardiac arrest. 2D/M Mode Doppler Measurement Value Normal Ranges Measurement Value Normal Ranges AoR Diam MM 3.1 cm AV Peak Salvatore 2.3 m/sec LVIDd 2D 6.1 3.5 - 5.6 cm AV Peak PG 20.9 mmHg LVIDs 2D 3.1 2.1 - 4.1 cm AI Peak PG 37.2 mmHg LVPWd 2D 1.2 0.6 - 1.1 cm AI Peak Salvatore 3.0 m/sec IVSd 2D 1.2 0.6 - 1.1 cm AI PHT 147.3 msec EDV 2D 187.6 cm3 LVOT Peak Salvatore 1.2 m/sec ESV 2D 30.5 cm3 LVOT Peak PG 5.6 mmHg LA Dimen 2D 5.2 2.3 - 4.0 cm TR Peak Salvatore 3.8 m/sec TR Peak PG 56.6 mmHg PV Peak Salvatore 0.8 m/sec PV Peak PG 3.0 mmHg RVSP 64.6 mmHg Findings Left Ventricle: Hyperdynamic left ventricular systolic function. Mild concentric left ventricular hypertrophy. Mild enlargement of left ventricle cavity. Ejection fraction is visually estimated at 70 %. Right Ventricle: Mild enlargement of right ventricle. Left Atrium: There is moderate enlargement of left atrium. Right Atrium: There is moderate enlargement of right atrium. Mitral Valve: Moderate to severe mitral valve regurgitation. The regurgitation jet is eccentrically directed which may underestimate the severity of mitral regurgitation. Echogenic structure is seen on the anterior mitral valve leaflet consistent with vegetation. Aortic Valve: Severe aortic valve regurgitation. Echogenic structure seen on aortic valve leaflets consistent with vegetation. Tricuspid Valve: Normal appearance of the tricuspid valve. Estimated peak PA systolic pressure 64 mmHg. There is moderate tricuspid regurgitation. Pulmonic Valve: Normal pulmonic valve appearance. There is trace pulmonic regurgitation. Pericardium: Normal pericardium with no significant pericardial effusion. Pleural effusion seen. Aorta: Aortic annulus appears echodense and thickened, concerning for abscess. IVC: Dilated IVC without respiratory collapse, however, patient on ventilator. Pulmonary Artery: Normal pulmonary artery size. Conclusions Hyperdynamic left ventricular systolic function. Mild concentric left ventricular hypertrophy. Mild enlargement of left ventricle cavity. Ejection fraction is visually estimated at 70 %. Mild enlargement of right ventricle. There is moderate enlargement of left atrium. There is moderate enlargement of right atrium. Moderate to severe mitral valve regurgitation. The regurgitation jet is eccentrically directed which may underestimate the severity of mitral regurgitation. Echogenic structure is seen on the anterior mitral valve leaflet consistent with vegetation. Severe aortic valve regurgitation. Echogenic structure seen on aortic valve leaflets consistent with vegetation. Aortic annulus appears echodense and thickened, concerning for abscess. Normal appearance of the tricuspid valve. Estimated peak PA systolic pressure 64 mmHg. There is moderate tricuspid regurgitation. Normal pericardium with no significant pericardial effusion. Pleural effusion seen. Findings discussed with ER physician Dr Regalado at 11am. Electronically Signed By: Jaime Jordan 18-Mar-2017 11:05:20 -0800 Patient Name: TANA KHOURY Study Date: 18-Mar-2017 [id number]
[2017-03-18] MEDS ORDERED: ONDANSETRON 4 MG INJ IV PRN (11:30)
[2017-03-18] MEDS ORDERED: ALBUTEROL/IPRATROPIUM (NEB) 3 ML AMP HHN PRN (11:30)
[2017-03-18] MEDS ORDERED: LORAZEPAM 0.5 MG TAB PO PRN (11:30)
[2017-03-18] MEDS ORDERED: NA PHOSPHATE/BIPHOS 133 ML ENEMA PR PRN (11:30)
[2017-03-18] MEDS ORDERED: NITROGLYCERIN (SL) 0.4 MG TAB SL PRN (11:30)
[2017-03-18] MEDS ORDERED: morphine 2 MG INJ IV PRN (11:30)
[2017-03-18] MEDS ORDERED: PHENYLephrine 160 MG in DEXTROSE 5% 484 ML IV SCH (11:30)
[2017-03-18] MEDS ORDERED: HYDROCODONE/APAP (5/325) TAB PO PRN (11:30)
[2017-03-18] MEDS ORDERED: NORepinephrine 32 MG in DEXTROSE 5% 218 ML IV SCH (11:30)
[2017-03-18] MEDS ORDERED: ACETAMINOPHEN 325 MG TAB PO PRN (11:30)
[2017-03-18] MEDS ORDERED: DOCUSATE SODIUM 100 MG CAP PO PRN (11:30)
[2017-03-18] MEDS ORDERED: NACL 0.9% 3 ML SYG IV SCH (11:30)
[2017-03-18] MEDS ORDERED: MAGNESIUM HYDROXIDE 30ML CUP PO PRN (11:30)
[2017-03-18 11:33] LABS: SALICYLATE < 1.0 mg/dl (5.0-30.0)
[2017-03-18 12:00] VITALS: BP 145/73; PULSE 139; RESP 20; TEMP 98.3
[2017-03-18] MEDS ORDERED: PHENYLephrine 20MG IN 250 ML 250 ML IV SCH (12:00)
[2017-03-18] MEDS ORDERED: SODIUM BICARBONATE (IV ADD) 150 MEQ in DEXTROSE 5% 1,000 ML IV SCH (12:00)
[2017-03-18] MEDS ORDERED: DAPTOMYCIN 1,000 MG in SOD CHLORIDE 0.9% 100 ML IVPB SCH (12:30)
[2017-03-18 12:34] LABS: OPIATES Negative (NEGATIVE)
[2017-03-18 12:35] LABS: BARBITURATES Negative (NEGATIVE); BENZODIAZEPINES Negative (NEGATIVE); CANNABINOIDS Negative (NEGATIVE); COCAINE Negative (NEGATIVE)
--- NOTE | 2017-03-18 12:57 | CONS ---
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 Patient requires intense medical management as well as potentially procedural/cardiothoracic surgical interventions. No indication for general surgical interventions at this time. Also, patient is not currently a liver transplant candidate. However, I do recommend that we continue workup of liver failure to ensure lack of other mitigating circumstances such as Tylenol toxicity, viral infection, etc. Discussed all the above in detail with the patient's family that included his mother and his uncle and with the team including emergency physicians as well as other physicians involved. Answered all questions. Patient's family appear to understand and agreed with plans. With above assessment, I've recommended the followin. Continue aggressive medical support 2. Continue workup including follow-up on Tylenol levels and aggressive search for other causes of liver failure 3. Much appreciate involvement from cardiology and cardiothoracic surgery regarding further interventions to improve cardiac function Thank you very much for having me involved in the care of this very pleasant patient and wonderful family. If you have any questions, please feel free to contact me at [phone]. Nature of presenting problem: low, moderate, high severity Please note that, given the minimal, limited, multiple, extensive number of diagnoses or management options, the minimal or none, limited, moderate, extensive amount and/or complexity of data needed to be reviewed, and minimal, low, moderate, high risk of complications and/or morbidity or mortality, this qualifies as straightforward, low complexity, moderate complexity, high complexity type of decision-making. Disclaimers: 1. Inadvertent spelling and grammatical errors are likely due to electronic health record (EHR)/dictation software used and do not reflect on the quality of delivered patient care. 2. The electronic timestamp recorded on this note does not necessarily reflect the actual date and time of the visit or the service. 3. Portions of this note may have been created through electronic templates and computer algorithms that might bring in information either from the system or from other physicians and providers. Please note that such information may or may not contain errors, the occurrence of which are outside of my control. In general (but not always) this happens either in the beginning or at the end of the note. The portion of the note that I have created are generally done in 1 continuous block of text, flanked at the beginning and at the end by " ", and entered into one field in the EHR. 4. There may be other unanticipated errors in the note that are outside of my control. I can only attest to the portions of the note that I have created. 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 Comorbidities: 1. BMI 34.0 CONSULTATION REQUESTED BY: Kaylah Maya MD Dear Dr. Maya, Thank you very much for the opportunity to participate in the care of this very pleasant but unfortunate young gentleman and his wonderful family. HISTORY OF PRESENT ILLNESS: The patient is a very pleasant 31-year-old without significant known past medical history and with comorbidity of BMI 34, who presented to [facility] emergency department with dizziness and shortness of breath. Shortly after presentation, the patient decompensated and had to be intubated with full code measures applied. CT scan of chest abdomen and pelvis was performed to evaluate for massive PE. Other than inflamed liver and some stranding in the right upper quadrant, there was no other major findings. The gallbladder appeared to be with slightly thickened wall and perhaps little bit of pericholecystic fluid. There was also fluid in the rest of the abdomen as well. Patient's laboratory values were concerning for white blood cell count of 33k and significantly abnormal liver function and injury parameters including total bilirubin of 3.1, AST 5968, ALT 3847, alcohol phosphatase 173, and INR of 3.21. Patient's initial lactic acid was 16.5 and his initial ABG at 5:25 AM was pH 7.1, PO2 400.5, PCO2 21.3, base deficit of 22.9. About an hour later his repeat ABG showed pH of 6.9, PO2 107.6, PCO2 31.7 , and base deficit of 24.7. He remained intubated and coded at least 2 other times in the span of a few hours while aggressive resuscitation was being made and appropriate consultations were being made. 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 I recommended performance of Tylenol levels as well as serologies and autoimmune parameters while resuscitating the patient. I also contacted 1 of our local transplant centers and asked them to evaluate the patient for expedited transfer. During this timeframe, and echocardiography was performed which demonstrated presence of vegetations on both the mitral valve as well as the aortic valve and significant regurgitation through both of those valves. Upon further investigation, the patient was found to have been suffering from fatigue and symptoms for about 2-3 weeks prior to presentation to [facility] on 03/16/2017 where interestingly his liver parameters were rather unremarkable and his white blood cell count was 16. When I had a chance to speak with the patient's mother and his uncle, they told me that the patient had not been near sick relatives and that he did not have any congenital or other known major medical problems in the past. He was fairly healthy from their standpoint. No major hospitalizations or visits to the doctor until very recently. Per report, he was seen by his own physician yesterday where upon auscultation of the heart, the physician told the patient that his heart did not have normal sounds and that he should come to the hospital. The patient had gone home from that office visit and then later presented to [facility] through the emergency department as above. Note that during this timeframe I also had a chance to discuss the patient's care with our liver transplant center and I believe appropriately, they did not want to transfer the patient since he would not be eligible for liver transplant given the new findings of endocarditis causing secondary liver insufficiency and dysfunction. Note that the emergency department as well as myself at also contacted our cardiology as well as cardiothoracic services and made them aware of the patient. During my visit with the patient the patient was being coded initially. I returned to the emergency department after the patient had regained a pulse and was able to do an examination of the patient but otherwise could not speak to him since he was completely unresponsive. I did gather more information from the chart as well as discussions with both family as well as the medical team and physicians. ALLERGIES: NO KNOWN DRUG ALLERGIES MEDICATIONS Documented in the electronic records and reviewed by me. Please see the electronic records for details, as well as details for inpatient medications which were also reviewed by me. SOCIAL HISTORY: Per report, the patient lives with family. - Tob; - ETOH; - IVDU FAMILY HISTORY: There are no significant medical, surgical or oncologic issues in the family as reported by the patient or reflected in the chart. REVIEW OF SYSTEMS: Other than mentioned above, there were no other pertinent positives or pertinent negatives in an otherwise complete 14 point review of systems. PHYSICAL EXAMINATION GENERAL: The patient appears to be a very pleasant gentleman of non- , perhaps [place] descent lying in bed, appearing stated age, and intubated and unresponsive. BMI: 32.5 VITAL SIGNS: Temperature 98.3, pulse 139, blood pressure 145/73, respiratory rate 20, pulse oximetry 93% on mechanical ventilation with FiO2 of 100% (please also see auto important data if available as well as the electronic records) HEENT: Normocephalic and atraumatic. Extraocular muscles and hearing are unable to be assessed due to patient's intubated state. Sclerae are nonicteric. Pupils appear to be sluggish but mildly reactive with approximately 3 mm diameter. Oral cavity is clear without endotracheal tube in place; oral mucosa appear to be pink and moist. Dentition: fair. NECK: Supple. There is no lymphadenopathy or JVD. There is no submental, submandibular or supraclavicular lymphadenopathy. CHEST: Rises symmetrically with each breath; patient is on the vent. There are no audible wheezes, rales or rhonchi on the gross exam. HEART: Pulse is tachycardic and palpable very faintly on the right wrist. Capillary refill is sluggish. Carotid pulses are palpable bilaterally and symmetrically in the neck. EXTREMITIES: Lower extremities contain no pitting edema around the ankles bilaterally and symmetrically. Posterior tibial pulses are palpable bilaterally and symmetrically. ABDOMEN: Abdomen is soft, nontender and protuberant and not necessarily distended. No evidence of ascites, organomegaly, caput medusae, engorged subcutaneous veins, or other abnormalities. There are no peritoneal signs or guarding. SKIN: Appears to be pink and feels warm to touch. NEUROLOGIC: Patient is intubated and unresponsive. LABORATORY DATA: See below IMAGING: See electronic chart. Please note that I've personally reviewed all pertinent available images and I agree in general with their overall reported findings. Consultation Date/Type/Reason Admit Date/Time Social History Smoking Status: Never smoker Exam/Review of Systems Vital Signs Vitals Vital Signs Date Time Temp Pulse Resp B/P Pulse Ox O2 Delivery O2 Flow Rate FiO2 03/18/17 12:00 98.3 139 20 145/73 93 Mechanical Ventilator 10.0 03/18/17 07:00 100 Intake and Output 03/17/17 03/17/17 03/18/17 15:00 23:00 07:00 Intake Total 4000 ml Balance 4000 ml Results Result Diagram: 03/18/17 0500 03/18/17 0500 Results 24 hrs Laboratory Tests Test 03/18/17 05:00 03/18/17 05:28 03/18/17 06:25 03/18/17 06:33 White Blood Count 33.2 #H Red Blood Count 4.41 L Hemoglobin 9.9 L Hematocrit 32.2 L Mean Corpuscular Volume 73.0 L Mean Corpuscular Hemoglobin 22.4 L Mean Corpuscular Hemoglobin Concent 30.7 L Red Cell Distribution Width 18.1 H Platelet Count 162 # Mean Platelet Volume 10.6 H Neutrophils % Segmented Neutrophils % (Manual) 67 Band Neutrophils % (Manual) 12 H Lymphocytes % Lymphocytes % (Manual) 17 Monocytes % Monocytes % (Manual) 4 Eosinophils % Basophils % Nucleated Red Blood Cells % 3 H Neutrophils # Neutrophils # (Manual) 23.5 H Band Neutrophils # 3.9 H Absolute Lymphocytes (Manual) 5.6 H Lymphocytes # Monocytes # Absolute Monocytes (Manual) 1.3 H Eosinophils # Basophils # Nucleated Red Blood Cells # Platelet Estimate NORMAL Giant Platelets 3 H Platelet Morphology Comment @See below Anisocytosis 1+ Microcytosis 1+ Prothrombin Time 33.3 H Prothrombin Time Ratio 2.6 INR International Normalized Ratio 3.21 Activated Partial Thromboplast Time 33.3 Sodium Level 127 L Potassium Level 5.4 H Chloride Level 94 L Carbon Dioxide Level 9 #*L Anion Gap 29 #H Blood Urea Nitrogen 23 H Creatinine 1.68 H Glucose Level 44 #*L Lactic Acid Level 16.5 *H Calcium Level 8.2 L Total Bilirubin 3.1 H Direct Bilirubin 0.40 #H Indirect Bilirubin 2.7 H Aspartate Amino Transf (AST/SGOT) 5968 H Alanine Aminotransferase (ALT/SGPT) 3847 H Alkaline Phosphatase 173 #H Troponin I 0.122 *H Total Protein 6.8 Albumin 2.9 L Globulin 3.90 H Albumin/Globulin Ratio 0.74 Lipase 311 H Thyroid Stimulating Hormone (TSH) 1.690 Blood Gas Specimen Source Blood arterial Blood arterial Arterial Blood Date Drawn 03/18/2017 5:25:34 AM 03/18/2017 6:40:01 AM Arterial Blood pH (Temp corrected) 7.055 *L 6.920 *L Arterial Blood pCO2 (Temp correct) 21.3 L 31.7 L Arterial Blood pO2 (Temp corrected) 400.5 H 107.6 H Arterial Blood HCO3 5.8 *L 6.4 *L Arterial Blood Base Excess -22.9 L -24.7 L Arterial Blood Oxygen Saturation 99.3 H 92.5 L Germain Test N/A N/A Arterial Blood Gas Puncture Site Right Brachial Right Brachial Arterial Blood Carboxyhemoglobin 0.3 0.3 Arterial Blood Methemoglobin 0.4 0.6 Blood Gas A-a O2 Differential 219.4 H 573.7 H Oxyhemoglobin Percent 98.6 91.7 L Total Hemoglobin 10.6 L 8.6 L Blood Gas Temperature 37.0 37.0 Blood Gas Respiration Rate 24.0 40.0 Blood Gas Actual Respiration Rate 58 40 Blood Gas Modality MASK - BIPAP VENT - AC FiO2 90.0 100.0 Blood Gas IPAP/EPAP Ratio Blood Gas Critical Value Read Back ERIN SNOWDEN DR, J. Blood Gas Notified Whom BL BL Blood Gas Notified Time 03/18/2017 5:35:25 AM 03/18/2017 6:48:53 AM Bedside Glucose 39 *L Blood Gas Tidal Volume 400.0 Blood Gas Mean Airway Pressure 12 Blood Gas Inspiratory Pressure 22.0 Test 03/18/17 06:35 03/18/17 06:40 03/18/17 06:50 03/18/17 07:29 Urine Color CHIKA Urine Clarity CLOUDY A Urine pH 5.0 Urine Specific Bullard 1.019 Urine Ketones TRACE A Urine Nitrite NEGATIVE Urine Bilirubin NEGATIVE Urine Urobilinogen 2+ H Urine Leukocyte Esterase NEGATIVE Urine Microscopic RBC 8 H Urine Microscopic WBC 6 H Urine Amorphous Crystals FEW A Urine Bacteria FEW A Urine Mucus FEW A Urine Hemoglobin 2+ H Urine Glucose NEGATIVE Urine Total Protein 2+ H Urine Opiates Screen Negative Urine Barbiturates Negative Urine Amphetamines Screen Negative Urine Benzodiazepines Screen Negative Urine Cocaine Screen Negative Urine Cannabinoids Negative Bedside Glucose 146 153 Lactic Acid Level 16.1 *H Test 03/18/17 08:17 03/18/17 08:20 03/18/17 08:27 03/18/17 09:29 Lactic Acid Level 15.6 *H Phosphorus Level 9.6 H Acetaminophen Level < 10.0 L Hepatitis B Surface Antigen NEGATIVE Hepatitis B Core Total Antibody NEGATIVE Hepatitis C Antibody NEGATIVE HIV (1&2) Antibody NEGATIVE Bedside Glucose 149 187 Test 03/18/17 10:50 Lactic Acid Level 16.2 *H Salicylates Level < 1.0 L Ethyl Alcohol Level 10.0 Medications Medications Current Medications Ondansetron HCl (Zofran Inj) 4 mg Q6H PRN IV NAUSEA AND/OR VOMITING; Start 04/22 at 11:30 Acetaminophen (Tylenol Tab) 650 mg Q6H PRN PO PAIN LEVEL 1-3 OR FEVER; Start 03/18/17 at 11:30 Acetaminophen/ Hydrocodone Bitart ([place] (5/325)) 1 tab Q6H PRN PO MODERATE PAIN LEVEL 4-6; Start 03/18/17 at 11:30 Morphine Sulfate (morphine) 2 mg Q4H PRN IV SEVERE PAIN LEVEL 7-10; Start 04/22 at 11:30 Docusate Sodium (Colace) 100 mg Q12H PRN PO CONSTIPATION; Start 03/18/17 at 11 :30 Magnesium Hydroxide (Milk Of Mag) 30 ml DAILY PRN PO CONSTIPATION; Start 03/18 at 11:30 Sodium Biphosphate/ Sodium Phosphate (Fleet Enema) 133 ml DAILY PRN RI CONSTIPATION; Start 03/18/17 at 11:30 Famotidine (Pepcid Iv) 20 mg Q12 IV ; Start 03/18/17 at 21:00 Heparin Sodium (Porcine) (Heparin (5000 Units/0.5 ml)) 5,000 unit Q8 SC ; Start 03/18/17 at 14:00 Lorazepam 0.5 mg 0.5 mg Q6H PRN PO ANXIETY; Start 03/18/17 at 11:30 Sodium Bicarbonate/ Dextrose (Na Bicarb/D5W) 1,150 ml @ 150 mls/hr Q7H40M IV ; Start 03/18/17 at 12:00 Nitroglycerin 1 tab 1 tab Q5M PRN SL ANGINA; Start 03/18/17 at 11:30 Cefepime HCl 50 ml @ 100 mls/hr Q8 IVPB ; Start 03/18/17 at 14:00 Daptomycin 1000 mg/Sodium Chloride 100 ml @ 200 mls/hr Q24H IVPB ; Start 03/18 at 12:30 Norepinephrine 32 mg/Dextrose 250 ml @ 0.46 mls/hr TITRATE IV ; Start at 11:30 Phenylephrine HCl 160 mg/Dextrose 500 ml @ 18.75 mls/ hr TITRATE IV Last administered on 03/18/17 12:02; Admin Dose 18.75 MLS/HR; Start 03/18/17 at 11 :30 Phenylephrine HCl 250 ml @ 0 mls/hr TITRATE IV ; Start 03/18/17 at 12:00; Stop 03/18/17 at 16:00 Epinephrine/ Dextrose (EPINEPHrine/D5W) 250 ml @ 0 mls/hr TITRATE IV Last administered on 03/18/17 12:48; Admin Dose 37.5 MLS/HR; Start 03/18/17 at 13: 00; Stop 03/18/17 at 13:01 ANALISA PAYNE M.D. Mar 18, 2017 12:57
[2017-03-18] MEDS ORDERED: EPINEPHRINE 4 MG in D5W 250 ML IV SCH (13:00)
[2017-03-18 13:33] LABS: CK-MB 3.32 ng/ml (0.0-2.4)
[2017-03-18 13:35] LABS: TROPONIN-I 0.159 ng/ml (0.00-0.12)
[2017-03-18 13:46] LABS: AADO2 Arterial 618.3 mmHg (7.0-24.0); Arterial Base Excess -18.1 mmol/L (-3.0-3); Arterial COHb 0.3 % (0.0-3.0); Arterial Fraction of Oxyhgb 19.5 % (93.0-99.0); Arterial HCO3 13.9 mmol/L (22.0-26.0); Arterial MetHb 2.3 % (0.0-1.5); Arterial Total Hemglobin 8.4 g/dl (12.0-18.0); MODE VENT - AC
[2017-03-18] MEDS ORDERED: HEPARIN 5,000 UNIT/0.5 ML VIAL SC SCH (14:00)
[2017-03-18] MEDS ORDERED: [UNRECOGNIZED DRUG - OTHER] IV SCH ×2 (14:00)
[2017-03-18] MEDS ORDERED: SODIUM BICARBONATE IV SCH ×2 (14:00)
[2017-03-18] MEDS ORDERED: CEFEPIME 2GM/50 ML (PMX) 50 ML IVPB SCH ×2 (14:00→16:00)
--- NOTE | 2017-03-18 14:29 | CONS ---
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 Patient with recurrent cardiac arrest and episodes of heart block. Given patient with endocarditis and abscess formation, theoretically, this could be causing the heart block. Furthermore, given patient's severe instability, he was unsafe for transport to tertiary care facility in discussion with ER staff. IV epinephrine was used initially but patient stopped responding with recurrent heart block even with IV epinephrine and PEA. Transcutaneous pacemaker was used but with no myocardial capture. We emergently took the patient to the cardiac Movie Writer and plans of placing a temporary pacemaker. During transport, patient became pulseless again, CPR was continued with ACLS protocol with multiple medications. Patient placed on the Movie Writer table and sheath was exchanged out and temporary transvenous pacer was placed in the right ventricle. Even on full amps, there was no capture with transvenous pacer. Throughout this, CPR was continued with multiple medications given. From the point of leaving the emergency room, over 35 minutes of CPR and ACLS was performed. Patient remained in cardiac standstill on fluoroscopy with no pulse, PEA, fixed and dilated pupils and no spontaneous respiration. Given the prolonged cardiac arrest and unable to pace the myocardium even with transvenous pacemaker, and in discussion with the ER physician and critical care pulmonary colleagues at bedside, patient was pronounced at 1407. Mother and uncle were at bedside. Greater than 75 minutes of critical care time in the care of this patient Consultation Date/Type/Reason Admit Date/Time Type of Consultation: cv Reason for Consultation Abnormal echocardiogram, cardiac arrest Hx of Present Illness This is a 31-year-old male with no significant past medical history with as per the family not feeling well over the past 2 months. Patient with possible fevers over the past few weeks. Patient came to the emergency room shortness of breath and not feeling well. In discussion with ER staff, patient with worsening respiratory status and cardiac arrest. ACLS protocol and patient intubated and put on IV pressors. When I came to the bedside, in discussion with ER staff, patient with recurrent episodes of bradycardia and loss of pulse. Patient in the midst of active CPR. History obtained from the patient' s medical chart, mother and uncle at emergency room and ER staff. Unable to perform at the current time given patient's mental status. Past Medical History Medical History: no pertinent history Social History Alcohol Use: none Smoking Status: Never smoker Drug Use: none Other Social History Works as a [employer] Exam/Review of Systems Vital Signs Vitals Vital Signs Date Time Temp Pulse Resp B/P Pulse Ox O2 Delivery O2 Flow Rate FiO2 03/18/17 12:00 98.3 139 20 145/73 93 Mechanical Ventilator 10.0 03/18/17 07:00 100 Intake and Output 03/17/17 03/17/17 03/18/17 15:00 23:00 07:00 Intake Total 4000 ml Balance 4000 ml Exam Intubated and sedated, no apparent distress, undergoing CPR Head: normocephalic ENMT: intubated Respiratory: other (Coarse breath sounds bilaterally, no wheezing) Cardiovascular: other (Distant heart sounds and difficult to ascertain secondary to active CPR) Gastrointestinal: other (Diminished bowel sounds), soft Extremities: edema (Trace) Results Result Diagram: 03/18/17 0500 03/18/17 0500 Results 24 hrs Laboratory Tests Test 03/18/17 05:00 03/18/17 05:28 03/18/17 06:25 03/18/17 06:33 White Blood Count 33.2 #H Red Blood Count 4.41 L Hemoglobin 9.9 L Hematocrit 32.2 L Mean Corpuscular Volume 73.0 L Mean Corpuscular Hemoglobin 22.4 L Mean Corpuscular Hemoglobin Concent 30.7 L Red Cell Distribution Width 18.1 H Platelet Count 162 # Mean Platelet Volume 10.6 H Neutrophils % Segmented Neutrophils % (Manual) 67 Band Neutrophils % (Manual) 12 H Lymphocytes % Lymphocytes % (Manual) 17 Monocytes % Monocytes % (Manual) 4 Eosinophils % Basophils % Nucleated Red Blood Cells % 3 H Neutrophils # Neutrophils # (Manual) 23.5 H Band Neutrophils # 3.9 H Absolute Lymphocytes (Manual) 5.6 H Lymphocytes # Monocytes # Absolute Monocytes (Manual) 1.3 H Eosinophils # Basophils # Nucleated Red Blood Cells # Platelet Estimate NORMAL Giant Platelets 3 H Platelet Morphology Comment @See below Anisocytosis 1+ Microcytosis 1+ Prothrombin Time 33.3 H Prothrombin Time Ratio 2.6 INR International Normalized Ratio 3.21 Activated Partial Thromboplast Time 33.3 Sodium Level 127 L Potassium Level 5.4 H Chloride Level 94 L Carbon Dioxide Level 9 #*L Anion Gap 29 #H Blood Urea Nitrogen 23 H Creatinine 1.68 H Glucose Level 44 #*L Lactic Acid Level 16.5 *H Calcium Level 8.2 L Total Bilirubin 3.1 H Direct Bilirubin 0.40 #H Indirect Bilirubin 2.7 H Aspartate Amino Transf (AST/SGOT) 5968 H Alanine Aminotransferase (ALT/SGPT) 3847 H Alkaline Phosphatase 173 #H Troponin I 0.122 *H Total Protein 6.8 Albumin 2.9 L Globulin 3.90 H Albumin/Globulin Ratio 0.74 Lipase 311 H Thyroid Stimulating Hormone (TSH) 1.690 Blood Gas Specimen Source Blood arterial Blood arterial Arterial Blood Date Drawn 03/18/2017 5:25:34 AM 03/18/2017 6:40:01 AM Arterial Blood pH (Temp corrected) 7.055 *L 6.920 *L Arterial Blood pCO2 (Temp correct) 21.3 L 31.7 L Arterial Blood pO2 (Temp corrected) 400.5 H 107.6 H Arterial Blood HCO3 5.8 *L 6.4 *L Arterial Blood Base Excess -22.9 L -24.7 L Arterial Blood Oxygen Saturation 99.3 H 92.5 L Germain Test N/A N/A Arterial Blood Gas Puncture Site Right Brachial Right Brachial Arterial Blood Carboxyhemoglobin 0.3 0.3 Arterial Blood Methemoglobin 0.4 0.6 Blood Gas A-a O2 Differential 219.4 H 573.7 H Oxyhemoglobin Percent 98.6 91.7 L Total Hemoglobin 10.6 L 8.6 L Blood Gas Temperature 37.0 37.0 Blood Gas Respiration Rate 24.0 40.0 Blood Gas Actual Respiration Rate 58 40 Blood Gas Modality MASK - BIPAP VENT - AC FiO2 90.0 100.0 Blood Gas IPAP/EPAP Ratio Blood Gas Critical Value Read Back ERIN SNOWDEN DR, J. Blood Gas Notified Whom BL BL Blood Gas Notified Time 03/18/2017 5:35:25 AM 03/18/2017 6:48:53 AM Bedside Glucose 39 *L Blood Gas Tidal Volume 400.0 Blood Gas Mean Airway Pressure 12 Blood Gas Inspiratory Pressure 22.0 Test 03/18/17 06:35 03/18/17 06:40 03/18/17 06:50 03/18/17 07:29 Urine Color CHIKA Urine Clarity CLOUDY A Urine pH 5.0 Urine Specific [place] 1.019 Urine Ketones TRACE A Urine Nitrite NEGATIVE Urine Bilirubin NEGATIVE Urine Urobilinogen 2+ H Urine Leukocyte Esterase NEGATIVE Urine Microscopic RBC 8 H Urine Microscopic WBC 6 H Urine Amorphous Crystals FEW A Urine Bacteria FEW A Urine Mucus FEW A Urine Hemoglobin 2+ H Urine Glucose NEGATIVE Urine Total Protein 2+ H Urine Opiates Screen Negative Urine Barbiturates Negative Urine Amphetamines Screen Negative Urine Benzodiazepines Screen Negative Urine Cocaine Screen Negative Urine Cannabinoids Negative Bedside Glucose 146 153 Lactic Acid Level 16.1 *H Test 03/18/17 08:17 03/18/17 08:20 03/18/17 08:27 03/18/17 09:29 Lactic Acid Level 15.6 *H Phosphorus Level 9.6 H Free Thyroxine 2.11 Acetaminophen Level < 10.0 L Hepatitis B Surface Antigen NEGATIVE Hepatitis B Core Total Antibody NEGATIVE Hepatitis C Antibody NEGATIVE HIV (1&2) Antibody NEGATIVE Bedside Glucose 149 187 Test 03/18/17 10:50 03/18/17 12:00 03/18/17 13:26 Lactic Acid Level 16.2 *H Salicylates Level < 1.0 L Ethyl Alcohol Level 10.0 Creatine Kinase 152 Creatine Kinase Index 2.2 Creatinine Kinase MB (Mass) 3.32 H Troponin I 0.159 *H Blood Gas Specimen Source Blood arterial Arterial Blood Date Drawn 03/18/2017 1:29:43 PM Arterial Blood pH (Temp corrected) 6.914 *L Arterial Blood pCO2 (Temp correct) 70.3 H Arterial Blood pO2 (Temp corrected) 24.4 *L Arterial Blood HCO3 13.9 L Arterial Blood Base Excess -18.1 L Arterial Blood Oxygen Saturation 20.0 L Germain Test N/A Arterial Blood Gas Puncture Site Femoral Arterial Blood Carboxyhemoglobin 0.3 Arterial Blood Methemoglobin 2.3 H Blood Gas A-a O2 Differential 618.3 H Oxyhemoglobin Percent 19.5 L Total Hemoglobin 8.4 L Blood Gas Temperature 37.0 Blood Gas Respiration Rate 40.0 Blood Gas Actual Respiration Rate 40 Blood Gas Modality VENT - AC FiO2 100.0 Blood Gas Tidal Volume 400.0 Blood Gas Critical Value Read Back Dr Regalado Blood Gas Notified Whom ab Blood Gas Notified Time 03/18/2017 1:44:35 PM Medications Medications Current Medications Ondansetron HCl (Zofran Inj) 4 mg Q6H PRN IV NAUSEA AND/OR VOMITING; Start 04/22 at 11:30 Acetaminophen (Tylenol Tab) 650 mg Q6H PRN PO PAIN LEVEL 1-3 OR FEVER; Start 03/18/17 at 11:30 Acetaminophen/ Hydrocodone Bitart ([place] (5/325)) 1 tab Q6H PRN PO MODERATE PAIN LEVEL 4-6; Start 03/18/17 at 11:30 Morphine Sulfate (morphine) 2 mg Q4H PRN IV SEVERE PAIN LEVEL 7-10; Start 04/22 at 11:30 Docusate Sodium (Colace) 100 mg Q12H PRN PO CONSTIPATION; Start 03/18/17 at 11 :30 Magnesium Hydroxide (Milk Of Mag) 30 ml DAILY PRN PO CONSTIPATION; Start 03/18 at 11:30 Sodium Biphosphate/ Sodium Phosphate (Fleet Enema) 133 ml DAILY PRN [place] CONSTIPATION; Start 03/18/17 at 11:30 Famotidine (Pepcid Iv) 20 mg Q12 IV ; Start 03/18/17 at 21:00 Heparin Sodium (Porcine) (Heparin (5000 Units/0.5 ml)) 5,000 unit Q8 SC ; Start 03/18/17 at 14:00 Lorazepam 0.5 mg 0.5 mg Q6H PRN PO ANXIETY; Start 03/18/17 at 11:30 Sodium Bicarbonate/ Dextrose (Na Bicarb/D5W) 1,150 ml @ 150 mls/hr Q7H40M IV ; Start 03/18/17 at 12:00 Nitroglycerin 1 tab 1 tab Q5M PRN SL ANGINA; Start 03/18/17 at 11:30 Cefepime HCl 50 ml @ 100 mls/hr Q8 IVPB ; Start 03/18/17 at 14:00 Daptomycin 1000 mg/Sodium Chloride 100 ml @ 200 mls/hr Q24H IVPB ; Start 03/18 at 12:30 Norepinephrine 32 mg/Dextrose 250 ml @ 0.46 mls/hr TITRATE IV ; Start at 11:30 Phenylephrine HCl 160 mg/Dextrose 500 ml @ 18.75 mls/ hr TITRATE IV Last administered on 03/18/17t 12:02; Admin Dose 18.75 MLS/HR; Start 03/18/17 at 11 :30 Phenylephrine HCl 250 ml @ 0 mls/hr TITRATE IV ; Start 03/18/17 at 12:00; Stop 03/18/17 at 16:00 Sodium Bicarbonate/ Sodium Bicarbonate/ Sodium Bicarbonate/ Sodium Bicarbonate/ Dextrose/Sodium Chloride (Na Bicarb/Na Bicarb/Na Bicarb/ Na Bicarb/D5-1/ 2ns) 1, 200 ml @ 150 mls/hr Q8H IV ; Start 03/18/17 at 14:00 Procedures Procedures Telemetry reviewed with episodes of sinus tachycardia and then heart block Jaime Jordan DO Mar 18, 2017 14:28
--- NOTE | 2017-03-18 16:34 | CONS ---
DATE OF ADMISSION: 03/18/2017 DATE OF CONSULTATION: REASON FOR CONSULTATION: Cardiopulmonary arrest and respiratory failure. HISTORY OF PRESENT ILLNESS: This is a 31-year-old gentleman with no significant past medical histor y, has had flu-like symptoms for several days, presented to the emergency room, awake, alert, orient ed with shortness of breath and dizziness, shortly after which the patient decompensated requiring e mergent intubation, mechanical ventilation, and CPR was performed for cardiopulmonary arrest. CT an giogram was performed, no evidence of pulmonary embolism. He did have an inflamed liver with strand ing. Emergent echocardiogram was performed and demonstrated severe valvular vegetations of mitral a nd aortic valves. Initial arterial blood gas demonstrated severe metabolic acidosis with a pH of 7. 1, subsequently had a pH of 6.9. Prior to this deterioration, patient was in usual state of health. Patient was evaluated by the liver team this morning given his abnormal findings; however, the pat ient currently not stable for transfer and currently being coded for the fourth time as this dictati on is being performed. In addition to severe endocarditis, hypotension now requiring multiple vasop ressors. Patient has no urine output. Pupils are sluggish at this point. PAST MEDICAL HISTORY: As above. MEDICATIONS: Per chart. ALLERGIES: NONE. SOCIAL HISTORY: Nonsmoker, no alcohol, no history of drug use. FAMILY HISTORY: Noncontributory. SYSTEMS REVIEW: A 12-point review of systems unable to perform. PHYSICAL EXAMINATION: VITAL SIGNS: Temperature 98, pulse is 130, blood pressure 140/70, O2 saturation 96%, FIO2 of 100%. HEENT: Orally intubated, dry mucous membranes. Pupils minimally reactive. CARDIAC: S1, S2, no added sounds or murmurs. CHEST: Diminished air entry bilaterally with rhonchi. ABDOMEN: Soft, nontender, no guarding or rebound. EXTREMITIES: No cyanosis, clubbing, 1+ edema. NEUROLOGIC: Generalized weakness. LABORATORY DATA: White count 33.2, hemoglobin 9.9, platelets of 162. BUN 23, creatinine 1.68, gluc ose was low at 44. Lactic acid remains elevated at 16.5. INR 3.21. DIAGNOSTIC DATA: Chest x-ray shows pulmonary edema. CT angiogram: No pulmonary embolus, significa nt bilateral pleural effusions with compressive atelectasis. IMPRESSION AND PLAN: Acute [place] valve endocarditis. Organisms likely either Staph aureus or stre ptococcal. Blood cultures were drawn, results are pending at this time. The patient now having ref ractory septic shock, severe lactic acidosis, and renal failure. Multiple cardiopulmonary arrests, concern for anoxic brain injury. PLAN: 1. Continue broad-spectrum antibiotic coverage. Currently on cefepime and vancomycin. We will con railroad purchasing agent addition of gentamicin for synergistic effect. 2. Continue mechanical ventilation. 3. Aggressive bicarbonate replacement. 4. Consider emergent hemodialysis for correction of metabolic acidosis. 5. Cardiothoracic surgery evaluation. 6. Infectious disease consultation. Dictated By: LISSETTE EWING MD SV/ELOISE Conf#: [id number] DID#: [id number] CC: JOSE ANDERSON;*End*
--- NOTE | 2017-03-18 16:44 | CONS ---
DATE OF ADMISSION: 03/18/2017 DATE OF CONSULTATION: 03/18/2017 TYPE FOR CONSULTATION: Infectious Disease. REASON FOR CONSULTATION: Antibiotic management. HISTORY OF PRESENT ILLNESS: Allegra Schultz is an unfortunate 31-year-old male who was brought in by his parents with lightheadedness and shortness of breath and is being seen for antibiotic managem ent. The patient states that for the last few weeks he has had a slight cough, has not been feeling well. He came in yesterday with symptoms of fever, which was relieved in the emergency room. Toda y he got much worse, could not breathe, denies nausea or vomiting. On admission, his white count wa s 33.2, H and H 9.2 and 32.2, platelet count 162,000. His BUN and creatinine are 23/1.68. His bica rbonate was 9. Sodium 127, chloride 94, potassium 5.4 and glucose of 44. He has a BMI of 34. He p resents with severe endocarditis with both mitral valve and aortic valve compromise. He also has a secondary liver dysfunction. He will require cardiothoracic surgical intervention. Shortly after h is presentation, the patient decompensated and had to be intubated with FULL CODE measures applied. A CT scan of the chest and abdomen and pelvis was performed to evaluate for ____ PE. He has an inf lamed liver and some stranding in the right upper quadrant. No other major findings. The gallbladd er appeared to be slightly thickened with possibly some pericholecystic fluid. His white count was 33,000 as noted, bilirubin 3.1, AST 5968, ALT 3847, alkaline phosphatase 173. His initial lactic ac id was 16.5. His initial ABG in the morning was 7.1, pO2 of 100, pCO2 of 21. He remained intubated , coded at least 2 other times in a span of a few hours while aggressive resuscitation was being mad e and appropriate consultations made. The patient is currently undergoing his sixth cardiac arrest and we are trying to get him to the catheterization lab. PHYSICAL EXAMINATION: GENERAL: He is an male who is intubated on a respirator. SKIN: Without generalized rash. HEENT: Within normal limits. NECK: Supple. LYMPH NODES: None palpable. CHEST: Decreased breath sounds at the bases. HEART: Tachycardic without murmur or gallop. ABDOMEN: Soft, nontender, without organosplenomegaly or masses. EXTREMITIES: Without cyanosis, clubbing, or edema. He has a central line. He has a Joe catheter. He is on multiple ____, daptomycin and cefepime, an d he is on an epinephrine drip as well as Norepinephrine, Levophed, Propofol. His prognosis is dism al. He has evidence of mitral and aortic valve endocarditis. Dr. Jordan is working on him as well a s numerous other physicians. We will follow him from an infectious disease perspective, if he survi ves these critical minutes and hours. Dictated By: TRISH OWEN MD, JD/ELOISE Conf#: [id number] DID#: [id number] CC: JOSE ANDERSON;*End*
[2017-03-18] MEDS ORDERED: FAMOTIDINE 20 MG INJ IV SCH (21:00)
[2017-03-20 13:56] LABS: ANA SCREEN NEGATIVE (NEGATIVE)
--- NOTE | 2017-04-04 11:44 | OPR ---
Date/Time of Note Date/Time of Note DATE: 04/04/17 TIME: 11:41 Operative Report Procedure Date: Mar 18, 2017 Preoperative Diagnosis Cardiac arrest Heart block/PEA Postoperative Diagnosis Cardiac arrest Operation/Procedure Performed Temporary transvenous pacemaker via right femoral vein approach Surgeon see signature line Sack Cleaning Hand None Anesthesia Type: general Estimated Blood Loss: minimal Transfusion none Specimen None Grafts/Implants none Complications none Procedure Description Please refer to consult note dated 03/18/2017. Patient brought to the cardiac Apprentice Electrician secondary to recurrent cardiac arrest with episodes of intermittent heart block and pulseless electric activity. Patient put on the Apprentice Electrician table. Patient already had a right femoral vein sheath in place. This was changed out for a 6 [place] sheath and a temporary transvenous pacer was taken up to the right ventricle. Pacing was attempted at full amps without myocardial capture as mentioned in previous note. Patient was continued with CPR and ACLS protocol during the procedure. Please refer to consult note for details. Jaime Jordan DO Apr 04, 2017 11:44
== END 2017-03-18 14:07 | disposition expired ==
LOC: E/R 04:29 → ICU 07:44 → UNDOADMIN 07:44 → CCL 13:38 → SDS 13:38 → CCL 14:07
PROVIDERS: ATTEND Internal Medicine Cardiovascular Disease
DX: A41.9 Sepsis, unspecified organism (principal); R65.21 Severe sepsis with septic shock; I38 Endocarditis, valve unspecified; I45.9 Conduction disorder, unspecified; J96.90 Respiratory failure, unspecified, unspecified whether with hypoxia or hypercapnia
CPT/HCPCS: 31500; 33210; 36415; 36600; 71010; 71275; 75635; 76705; 76937; 80053; 80306; 80307; 81001; 82525; 82550; 82553; 82803; 82962; 83605; 83690; 84100; 84439; 84443; 84484; 85025; 85610; 85730; 86038; 86255; 86703; 86704; 86709; 86803; 86850; 86900; 86901; 87040; 87086; 87340; 92950; 92953; 93005; 93306; 94002; 94660; 96374; 96375; C1894; J0132; J0171; J0461; J0692; J0878; J2370; J2405; J2543; J3370; J7030; J7042; J7070; Q9967; Z7502; Z7610; J1644